=== PATIENT | female | born 1985 | race Caucasian/White ===

== ENCOUNTER 2018-05-07 11:30 | Emergency (ER) | payer SELFPAY ==
[~2018-05-07] VITALS: Ht 154.9 cm; Wt 77.1 kg
[2018-05-07 11:34] VITALS: Ht 154.9 cm; Wt 77.1 kg
[2018-05-07 12:10] LABS: BASOPHIL % 0.3 % (0-2); PLATELET COUNT 302 x10^3mcL (130-400); RED CELL DISTRIBUTION WIDTH 12.5 % (11.5-14.5)
[2018-05-07 14:24] VITALS: BP 123/77
== END 2018-05-07 14:24 | disposition home or self-care (01) ==
LOC: ED 11:30
PROVIDERS: Emergency Medicine
DX: O03.9 Complete or unspecified spontaneous abortion without complication (principal)
CPT/HCPCS: 36415